=== PATIENT | female | born 1970 | race Caucasian/White ===

== ENCOUNTER 2017-08-03 08:04 | Inpatient (IN) ==
--- NOTE | 2017-08-03 08:30 | ED.PDOC ---
General ED Provider: Dr. MARTHA KIRKLAND Chief Complaint: Nausea/Vomiting Stated Complaint: abdominal pain Time Seen by Physician: 08:27 Mode of Arrival: Wheelchair Information Source: Patient Exam Limitations: No limitations Primary Care Provider: ODIN MOTTA Nursing and Triage Documentation Reviewed and Agree: Yes Reviewed sepsis parameters & appropriate labs ordered?: Yes System Inflammatory Response Syndrome: Not Applicable Sepsis Protocol: For patient's 13 years and over: Temp is 96.8 and below OR 101 and greater Pulse >90 BPM Resp >20/minute Acutely Altered Mental Status Are patient's symptoms suggestive of a new infection, such as: -Pneumonia -Skin, Soft Tissue -Endocarditis -UTI -Bone, Joint Infection -Implantable Device -Acute Abdominal Infection -Wound Infection -Meningitis -Blood Stream Catheter Infection -Unknown System Inflammatory Response Syndrome: Not Applicable GI Complaint Exam - Abdominal Pain Complaint/Exam Onset: Sudden Duration: 3 day ago Symptoms Are: Still present Timing: Intermittent Initial Severity: Moderate Current Severity: Moderate Location of Pain: Diffuse Radiates To: Reports: Back (right flank). Denies: Chest Character: Reports: Cramping Aggravating: Reports: Position Alleviating: Reports: Rest Associated Signs and Symptoms: Reports: Cough, Back pain, Nausea, Vomiting (5), Sore throat AAA Risk Factors: Reports: None Cardiac Risk Factors: Reports: None Ectopic Risk Factors: Reports: None Ovarian Torsion Risk Factors: Reports: None Surgical Obstruction Risk Factors: Reports: None Related Surgical History: Reports: None Patient Rh Status: Unknown Abdominal Findings: Present: None Differential Diagnoses: Appendicitis, Bowel Obstruction, Constipation, Gastroenteritis Quality Indicators for AMI: EKG in 10min. Quality Indicators for Cardiac Chest Pain: EKG in 10min. Quality Indicator For Non-Traumatic Chest Pain/Syncope: EKG Performed Review of Systems - Review Of Systems Constitutional: Reports: Chills, Malaise, Weakness, Loss of appetite Eyes: Reports: No symptoms Ears, Nose, Mouth, Throat: Reports: No symptoms Respiratory: Reports: No symptoms Cardiac: Reports: No symptoms GI: Reports: Abdominal pain, Nausea, Vomiting : Reports: No symptoms Musculoskeletal: Reports: No symptoms Skin: Reports: No symptoms Neurological: Reports: No symptoms Endocrine: Reports: No symptoms Hematologic/Lymphatic: Reports: No symptoms All Other Systems: Reviewed and Negative Past Medical History - Past Medical History Previously Healthy: Yes Endocrine: Reports: None Cardiovascular: Reports: None Respiratory: Reports: None Hematological: Reports: None Gastrointestinal: Reports: None Genitourinary: Reports: None Neuro/Psych: Reports: Anxiety Musculoskeletal: Reports: None Cancer: Reports: None Last Menstrual Period: 13 years - Surgical History General Surgical History: Reports: None - Family History Family History: Reports: None - Social History Smoking Status: Current every day smoker, Heavy tobacco smoker Hx Substance Use: No Alcohol Screening: Occasionally Physical Exam - Physical Exam Appearance: Ill-appearing Ill-appearing: Mild Pain Distress: Mild Eyes: ERNIE, EOMI, Conjunctiva clear ENT: Ears normal, Nose normal, Oropharynx normal Respiratory: Airway patent, Breath sounds clear, Breath sounds equal, Respirations nonlabored Cardiovascular: RRR, Pulses normal, No rub, No murmur GI/: No masses, Bowel sounds normal, Tender (diffusely) Musculoskeletal: Normal strength, ROM intact, No edema, No calf tenderness Skin: Warm, Dry, Normal color Neurological: Sensation intact, Motor intact, Reflexes intact, Cranial nerves intact, Alert, Oriented Psychiatric: Affect appropriate, Mood appropriate Physician Notification - Case Discussed Physician Notified: pmd Time of Notification: 09:58 Admit To: Inpatient Critical Care Note - Critical Care Note Total Time (mins): 0 Course - Course Hematology/Chemistry: 08/03/17 08:40 08/03/17 08:40 Orders, Labs, Meds: Lab Review 08/03/17 08/03/17 08/03/17 08:40 08:40 08:40 WBC 9.76 RBC 4.32 Hgb 13.3 Hct 38.7 MCV 89.6 MCH 30.8 MCHC 34.4 RDW Coeff of Fritz 13.4 Plt Count 280 Immature Gran % (Auto) 0.3 Neut % (Auto) 78.9 Lymph % (Auto) 16.8 [place] % (Auto) 3.5 Eos % (Auto) 0.3 Baso % (Auto) 0.2 Immature Gran # (Auto) 0.0 Neut # (Auto) 7.7 H Lymph # (Auto) 1.6 [place] # (Auto) 0.3 L Eos # (Auto) 0.0 Baso # (Auto) 0.0 Sodium 138 Potassium 3.8 Chloride 104 Carbon Dioxide 26 Anion Gap 11.8 BUN 17 Creatinine 0.66 Estimated GFR (MDRD) 96.00 BUN/Creatinine Ratio 25.75 Glucose 128 H Calcium 9.2 Total Bilirubin 0.4 AST 17 ALT 21 Alkaline Phosphatase 80 Total Creatine Kinase 41 Troponin I < 0.0100 Total Protein 6.8 Albumin 3.5 Globulin 3.3 Albumin/Globulin Ratio 1.06 Amylase 84 Lipase 28 Serum , Qual Negative Orders Category Date Time Status EKG-(ED ONLY) Stat CARDIO 08/03/17 08:25 Completed AMYLASE Stat LAB 08/03/17 08:40 Completed CBC W/ AUTO DIFF Stat LAB 08/03/17 08:40 Completed COMPREHENSIVE METABOLIC PANEL Stat LAB 08/03/17 08:40 Completed CREATINE KINASE Stat LAB 08/03/17 08:40 Completed FLU A/B MOLECULAR Stat LAB 08/03/17 09:25 Received LIPASE Stat LAB 08/03/17 08:40 Completed MOLECULAR GROUP A STREP Stat LAB 08/03/17 09:25 Received SERUM Stat LAB 08/03/17 08:40 Completed TROPONIN I Stat LAB 08/03/17 08:40 Completed URINALYSIS C & S IF INDICATED Stat LAB 08/03/17 08:25 Uncollected Alprazolam [Xanax] MEDS 08/03/17 15:00 Ordered 0.25 mg PO TID Morphine Sulfate [Morphine 4 mg/ml Syringe] MEDS 08/03/17 08:34 Discontinued 4 mg IM ONCE STA Ondansetron HCl/Pf [Zofran 4 mg/2 ml] MEDS 08/03/17 08:32 Discontinued 4 mg IM ONCE STA Ondansetron HCl/Pf [Zofran 4 mg/2 ml] MEDS 08/03/17 09:56 Ordered 4 mg IVP Q6H PRN SODIUM CHLORIDE 0.9% @ 125 MLS/HR(1,000ml) MEDS 08/03/17 09:57 Ordered Sodium Chloride 0.9% [Sodium Chloride] 1,000 ml IV 125 mls/hr CT ABDOMEN/PELVIS WO CONTRAST Stat RADS 08/03/17 08:[address] CHEST W/O CONTRAST Stat RADS 08/03/17 08:26 Completed Medications Generic Name Dose Route Start Last Admin Trade Name Freq PRN Reason Stop Dose Admin Alprazolam 0.25 mg 08/03/17 15:00 Xanax PO TID TERA Sodium Chloride 1,000 mls @ 125 mls/hr 08/03/17 09:57 Sodium Chloride IV 08/03/17 17:56 .Q8H STA Ondansetron HCl 4 mg 08/03/17 09:56 Zofran 4 Mg/2 Ml IVP Q6H PRN Nausea / Vomiting Discontinued Medications Generic Name Dose Route Start Last Admin Trade Name Oluq PRN Reason Stop Dose Admin Morphine Sulfate 4 mg 08/03/17 08:34 08/03/17 08:57 Morphine 4 Mg/Ml Syringe IM 08/03/17 08:35 4 mg ONCE STA Administration Ondansetron HCl 4 mg 08/03/17 08:32 08/03/17 08:56 Zofran 4 Mg/2 Ml IM 08/03/17 08:33 4 mg ONCE STA Administration Vital Signs: Temp Pulse Resp BP Pulse Ox 08/03/17 08:05 99.5 F 76 20 130/66 100 Departure - Departure Time of Disposition: 09:58 Disposition: ADMITTED INPATIENT Discharge Problem: Nausea, Vomiting, Abdominal pain Instructions: Abdominal Pain (ED) Condition: Good Pt referred to PMD for follow-up: Yes IPMP verified?: No Additional Instructions: Please call your Family Physician as soon as possible to schedule a follow-up appointment. Allergies/Adverse Reactions: Allergies No Known Allergies Allergy (Unverified 08/03/17 08:13) Home Medications: Ambulatory Orders Alprazolam [Xanax] 0.25 mg PO TID 08/03/17 Fluoxetine HCl [Prozac] 20 mg PO DAILY 08/03/17 Disposition Discussed With: Patient
[2017-08-03] MEDS ORDERED: ZOFRAN 4 MG/2 ML IM STA (08:32)
[2017-08-03] MEDS ORDERED: MORPHINE 2 MG/ML SYRINGE IM STA (08:33)
[2017-08-03] MEDS ORDERED: MORPHINE 4 MG/ML SYRINGE IM STA (08:34)
--- NOTE | 2017-08-03 09:35 | CT ---
EXAM: Noncontrast CT of the chest HISTORY: Cough COMPARISON: 07/25/2014 chest x-ray TECHNIQUE: Noncontrast CT of the chest FINDINGS: There are mild emphysematous changes. There is minimal biapical scarring. No suspicious pulmonary nod ules are identified. There is minimal lingular atelectasis. No consolidation, pleural effusion or pne umothorax is seen. Heart size is normal. Atherosclerotic calcifications are seen including coronary arteries. No medias tinal lymphadenopathy is seen. Evaluation of the johan is suboptimal without IV contrast. There are minimal degenerative changes of the thoracic spine. IMPRESSION: No acute cardiopulmonary findings. Mild emphysematous changes. Atherosclerosis.
--- NOTE | 2017-08-03 09:43 | CT ---
EXAM: Noncontrast CT of the abdomen and pelvis HISTORY: Pain COMPARISON: None available. TECHNIQUE: CT of the abdomen and pelvis FINDINGS: Noncontrast technique and a paucity of intra-abdominal fat limits evaluation. The unenhanced liver, gallbladder, spleen, left adrenal, kidneys and pancreas appear within normal limits. There is a righ t adrenal nodule measuring 1.9 cm and -3 HU. No renal calculi are identified. The distal ureters are obscured. No hydronephrosis is seen. The stomach is underdistended. A few scattered fluid filled loops of small bowel are seen without ab normal dilation. The sigmoid colon is redundant. There is mild colonic stool. The appendix is not abn ormally enlarged. There is calcified atherosclerotic plaque of the aorta and some of its branches. No free air or free fluid is seen. IMPRESSION: Some fluid filled loops of small bowel. This can be seen with enteritis. 1.9 cm right adrenal probable benign adenoma. No renal calculi or hydronephrosis. Atherosclerosis. Noncontrast exam.
[2017-08-03] MEDS ORDERED: ZOFRAN 4 MG/2 ML IVP PRN (09:56)
[2017-08-03] MEDS ORDERED: SODIUM CHLORIDE 1,000 ML IV STA (09:57)
[2017-08-03] MEDS ORDERED: PROZAC PO SCH (14:00)
[2017-08-03 14:19] VITALS: BMI 18.7
[2017-08-03] MEDS: XANAX PO SCH ×2 (15:29→20:27)
[2017-08-03] MEDS ORDERED: SOMA PO SCH (21:00)
[2017-08-04] MEDS ORDERED: PROZAC PO SCH (09:00)
[2017-08-04] MEDS ORDERED: PROTONIX PO STA (09:23)
[2017-08-04] MEDS: XANAX PO SCH ×2 (09:39→15:00)
--- NOTE | 2017-08-04 10:47 | PCM.PROG ---
Attending Provider: ATTENDING PROVIDER: Dr. ODIN MOTTA This patient is seen with Leticia Sousa, Nurse Practitioner. DATE OF SERVICE: 08/04/17 SUBJECTIVE: This 46 year old WHITE/ F was hospitalized 08/03/17. The patient is resting comfortably in bed, alert. No nausea, no diarrhea. REVIEW OF SYSTEMS: CONSTITUTIONAL: Fatigue and weakness. No night sweats. No malaise, lethargy. No fever or chills. HEENT: Eyes: No visual changes. No eye pain. No eye discharge. ENT: No runny nose. No epistaxis. No sinus pain. No odynophagia. No congestion. RESPIRATORY: No cough, no congestion. No hemoptysis. No shortness of breath. CARDIOVASCULAR: No angina symptoms. No CHF symptoms. No atypical chest pain for CAD. No palpitations. No orthopnea.. GASTROINTESTINAL: No abdominal pain. No nausea or vomiting. No diarrhea or constipation. No hematemesis. No hematochezia. GENITOURINARY: No urgency. No frequency. No dysuria. No hematuria. No obstructive symptoms. No discharge. No pain. No significant abnormal bleeding. MUSCULOSKELETAL: No musculoskeletal pain; no joint swelling. NEUROLOGICAL: Awake, alert, oriented to time, place and person. No headache. No neck pain. No syncope. No seizures. No dizziness. PSYCHIATRIC: Not anxious. No depression. No suicidal thoughts. No homicidal thoughts. SKIN: No rash. No lesions. No wounds. ENDOCRINE: No unexplained weight loss. No weight gain. HEMATOLOGIC/LYMPHATIC: No anemia. No purpura. No petechiae. No prolonged or excessive bleeding. No palpable lymph nodes. PHYSICAL EXAMINATION: GENERAL: The patient is awake, alert and oriented, lying in bed in no distress. VITAL SIGNS: Temperature 97.0 F, Pulse 57, Respiratory Rate 20, BP 120/76, Pulse Ox 97% HEENT: Head normocephalic, atraumatic. Eyes: Extraocular muscles are intact. Pupils are equal, round and reactive to light and accommodation. Ears: No lesions. Nose appeared normal. Throat: No exudate or erythema. NECK: Supple. No JVD, no carotid bruit. No lymphadenopathy or thyromegaly. LUNGS: Diminished breath sounds. Clear to auscultation. Percussion note normal. Chest symmetrical. HEART: S1, S2, no S3. No murmurs. No cyanosis or clubbing. No ascites. Pulses: Dorsalis pedis and posterior tibial pulses +1 to +2 both sides. ABDOMEN: Soft. Non-tender. Bowel sounds active. No CVA tenderness. No mass felt. EXTREMITIES: No edema. Full range of motion of all extremities, equal. NEUROLOGIC: No focal deficit. Cranial nerves II through XII are grossly intact. No headache, no double vision or headache. SKIN: Not dry. Intact. Turgor-normal. LYMPHATIC: No palpable lymph nodes/no lymphedema. MUSCULOSKELETAL: Normal joints with no swelling. Muscle tone is normal. LAB REVIEW: 08/04/17 04:30 08/04/17 04:30 08/04/17 04:30: Sodium 139, Potassium 3.6, Chloride 107, Carbon Dioxide 26, Anion Gap 9.6, BUN 11, Creatinine 0.66, Estimated GFR (MDRD) 96.00, BUN/ Creatinine Ratio 16.66, Glucose 91, Calcium 8.8, Total Bilirubin 0.4, AST 18, ALT 20, Alkaline Phosphatase 74, Total Protein 6.0 L, Albumin 3.2 L, Globulin 2.8, Albumin/Globulin Ratio 1.14 08/04/17 04:30: WBC 6.62, RBC 4.07 L, Hgb 12.5, Hct 37.3, MCV 91.6, MCH 30.7, MCHC 33.5, RDW Coeff of Fritz 13.7, Plt Count 233, Immature Gran % (Auto) 0.6, Neut % (Auto) 37.3, Lymph % (Auto) 52.4 H, [place] % (Auto) 6.2, Eos % (Auto) 3.2, Baso % (Auto) 0.3, Immature Gran # (Auto) 0.0, Neut # (Auto) 2.5, Lymph # (Auto ) 3.5 H, [place] # (Auto) 0.4, Eos # (Auto) 0.2, Baso # (Auto) 0.0 08/03/17 12:00: Urine Color Yellow, Urine Clarity Cloudy, Urine pH 8.5, Ur Specific [place] 1.015, Urine Protein Negative, Urine Glucose (UA) Negative, Urine Ketones Negative, Urine Blood Negative, Urine Nitrite Negative, Urine Bilirubin Negative, Urine Urobilinogen 0.2, Ur Leukocyte Esterase Negative, Urine Microscopic RBC 0-2, Urine Microscopic WBC 0-2, Ur Squamous Epith Cells 0- 2, Amorphous Sediment 3+ ASSESSMENT: 1. ACUTE GASTROENTERITIS 2. ABDOMINAL PAIN RESOLVED PLAN: 1. Protonix 40 mg daily 2. BRAT diet Plan and coordination of the patient's care discussed in the presence of Financial Reporting Analyst and nurse. CONDITION: Stable SCRIBED BY: OG SAUCEDO Immigration Judge scribed while in presence of service performed by Dr. Motta/Leticia Sousa APRN on 08/04/17 ([id number])
[2017-08-04 15:40] VITALS: BP 105/66; TEMP 99.1
[2017-08-05] MEDS ORDERED: PROTONIX PO SCH (06:30)
--- NOTE | 2017-08-05 08:08 | PN ---
DATE OF SERVICE: 08/04/17 SUBJECTIVE: The patient is up and about doing well. She went out to smoke. No nausea and no vomiting. Her appetite is improving. The patient doesn't have insurance and she wants to go home. PHYSICAL EXAMINATION: HEENT: Head normocephalic, atraumatic. Eyes: Extraocular muscles are intact. Pupils are equal, round and reactive to light and accommodation. Ears: No lesions. Nose appeared normal. Throat: No exudate or erythema. NECK: Supple. No JVD, no carotid bruit. No lymphadenopathy or thyromegaly. LUNGS: Clear to auscultation. Percussion note normal. Chest symmetrical. HEART: S1, S2, no S3. No murmurs. No cyanosis or clubbing. No ascites. Pulses: Dorsalis pedis and posterior tibial pulses +1 to +2 both sides. ABDOMEN: Soft. Nontender. Bowel sounds active. No CVA tenderness. No mass felt. EXTREMITIES: No edema. Full range of motion of all extremities, equal. NEUROLOGIC: No focal deficit. Cranial nerves II through XII are grossly intact. No headache, no double vision or headache. SKIN: Not dry. Intact. Turgor - normal. LYMPHATIC: No palpable lymph nodes/no lymphedema. MUSCULOSKELETAL: Normal joints with no swelling. Muscle tone is normal. The patient was seen and examined with the Nurse Practitioner. PLAN: 1. The patient will be discharged home on Zofran 2. If she starts again throwing up to come back to the hospital 3. Counseling for smoking done. TIME SPENT: More than 30 minutes. Plan and coordination of the patient's care discussed in the presence of nurse. BRENDA
--- NOTE | 2017-08-05 13:13 | PN ---
DATE OF SERVICE: 08/03/17 ADMITTING NOTE SUBJECTIVE: 46 year old white female came to the emergency room with nausea and vomiting. The patient also had some mild abdominal cramps. The duration of symptoms with nausea and vomiting nearly 5 days. According to the patient it started on Friday and started having vomiting ever since then she has vomited at least 5 -10 times a day, Not able to eat practically much and keep it down. There is no diarrhea. Sepsis protocol in hospital and the emergency room that was checked was negative. REVIEW OF SYSTEMS: CONSTITUTIONAL: No night sweats. Fatigue and weakness. No fever or chills. HEENT: Eyes: No visual changes. No eye pain. No eye discharge. ENT: No runny nose. No epistaxis. No sinus pain. No sore throat. No odynophagia. No congestion. RESPIRATORY: No cough, no congestion. No hemoptysis. No shortness of breath. CARDIOVASCULAR: No angina symptoms. No CHF symptoms. No atypical chest pain for CAD. No palpitations. No orthopnea. GASTROINTESTINAL: Mild abdominal cramps. Nausea and vomiting. No diarrhea or constipation. No hematemesis. No hematochezia. GENITOURINARY: No urgency. No frequency. No dysuria. No hematuria. No obstructive symptoms. No discharge. No pain. No significant abnormal bleeding. MUSCULOSKELETAL: No musculoskeletal pain; no joint swelling. NEUROLOGICAL: No headache. No neck pain. No syncope. No seizures. No dizziness. PSYCHIATRIC: Not anxious. No depression. No suicidal thoughts. No homicidal thoughts. SKIN: No rash. No lesions. No wounds. ENDOCRINE: No unexplained weight loss. No weight gain. HEMATOLOGIC/LYMPHATIC: No anemia. No purpura. No petechiae. No prolonged or excessive bleeding. No palpable lymph nodes. MEDICATIONS: Soma one at night Xanax 0.25mg three times a day Prozac 20mg PO daily MEDICAL/SURGICAL HISTORY: History of anxiety disorder The patient is underweight PERSONAL/FAMILY/SOCIAL HISTORY: The patient is smoker, and lives with the . No alcohol abuse. PHYSICAL EXAMINATION: GENERAL: The patient is oriented to time, place and person VITAL SIGNS: Temperature 99.5m, pulse 76, respiratory rate 20, blood pressure 130/66 and pulse ox 100%. HEENT: Head normocephalic, atraumatic. Eyes: Extraocular muscles are intact. Pupils are equal, round and reactive to light and accommodation. Ears: No lesions. Nose appeared normal. Throat: No exudate or erythema. NECK: Supple. No JVP, no carotid bruit. No lymphadenopathy or thyromegaly. LUNGS: Clear to auscultation. Percussion note normal. Chest symmetrical. HEART: S1, S2, no S3. No murmurs. No cyanosis or clubbing. No ascites. Pulses: Dorsalis pedis and posterior tibial pulses +1 to +2 both sides. ABDOMEN: Soft. Nontender. Bowel sounds active. No CVA tenderness. No mass felt. EXTREMITIES: No edema. Full range of motion of all extremities, equal. NEUROLOGIC: No focal deficit. Cranial nerves II through XII are grossly intact. No headache, no double vision or headache. SKIN: Dry. Intact. Turgor - normal. Mucosa Membrane dry. LYMPHATIC: No palpable lymph nodes/no lymphedema. MUSCULOSKELETAL: Normal joints with no swelling. Muscle tone is normal. LABS: Hgb 13, hct 38, WBC 9,000 normal differential, creatinine 0.6, BUN 17, potassium 3.6. Serum is negative. Troponin negative, lipase and amylase normal. CT scan of the abdomen shows acute enteritis. EKG sinus rhythm with no acute changes. ASSESSMENT: 1. Acute gastritis etiology likely viral 2. Anxiety disorder with depression, seems to be uncontrol PLAN: 1. Give IV fluids 2. IV Zofran 3. Routine Labs 4. Chest x-ray 5. CBC and CMP today 6. Diet as tolerated CONDITION: Stable. TIME SPENT: More than 30 minutes. Plan and coordination of the patient's care discussed in the presence of nurse. BRENDA
--- NOTE | 2017-08-08 08:14 | PN ---
08/03/17: Level 5 08/04/17: D as in discharge MTDD
--- NOTE | 2017-08-27 10:46 | SSS ---
DATE OF SERVICE: 08/04/17 (ADMITTED 08/03/17) REASON FOR ADMISSION: Gastroenteritis HISTORY OF PRESENT ILLNESS: This is a 46-year-old female seen in the ER by Dr. Mascorro. The patient is having nausea and vomiting numerous episodes times three days, unable to eat or take liquids. Complains of right flank pain. No dysuria. Given Morphine 4 mg IM times one and Zofran 4 mg IV times one. IV fluids for hydration. REVIEW OF SYSTEMS: CONSTITUTIONAL: No night sweats. No fatigue, malaise, lethargy. No fever or chills. HEENT: Eyes: No visual changes. No eye pain. No eye discharge. ENT: No runny nose. No epistaxis. No sinus pain. No sore throat. No odynophagia. No ear pain. No congestion. RESPIRATORY: No cough, no congestion. No hemoptysis. No shortness of breath. CARDIOVASCULAR: No angina symptoms. No CHF symptoms. No atypical chest pain for CAD. No palpitations. No orthopnea. GASTROINTESTINAL: No abdominal pain. No nausea or vomiting. No diarrhea or constipation. No hematemesis. No hematochezia. GENITOURINARY: No dysuria. No hematuria. No obstructive symptoms. No discharge. No pain. No significant abnormal bleeding. MUSCULOSKELETAL: No musculoskeletal pain. No joint swelling. NEUROLOGICAL: Awake, alert, oriented to time, place and person. No headache. No neck pain. No syncope. No seizures. No dizziness. PSYCHIATRIC: Not anxious. No depression. No suicidal thoughts. No homicidal thoughts. SKIN: No rash. No lesions. No wounds. ENDOCRINE: No unexplained weight loss. No weight gain. HEMATOLOGIC/LYMPHATIC: No anemia. No purpura. No petechiae. No prolonged or excessive bleeding. No palpable lymph nodes. PAST MEDICAL/SURGICAL HISTORY: OSTEOARTHRITIS, SPINAL DEPRESSION/ANXIETY PE TUBES CHILD PERSONAL/FAMILY HISTORY/SOCIAL HISTORY: , resides at home alone. Independent with ADLs. Family is supportive of needs when necessary. No DME. No home health or homemaking. Heavy smoker. ETOH socially. PHYSICAL EXAMINATION: GENERAL: The patient is a 46-year-old female. Height 5'1, weight 103 lbs. VITAL SIGNS: On admission, BP 130/66, heart rate 76, respiratory rate 20, temperature 99.5, sat on room air 100%. HEENT: Head normocephalic, atraumatic. Eyes: Extraocular muscles are intact. Pupils are equal, round and reactive to light and accommodation. Ears: No lesions. Nose appeared normal. Throat: No exudate or erythema. NECK: Supple. No JVD, no carotid bruit. No lymphadenopathy or thyromegaly. LUNGS: Decreased breath sounds. Clear to auscultation. Percussion note normal. Chest symmetrical. HEART: S1, S2, no S3. No murmurs. No cyanosis or clubbing. No ascites. Pulses: Dorsalis pedis and posterior tibial pulses +1 to +2 both sides. ABDOMEN: Soft. Nontender. Bowel sounds active. No CVA tenderness. No mass felt. EXTREMITIES: No edema. Full range of motion of all extremities, equal. NEUROLOGIC: No focal deficit. Cranial nerves II through XII are grossly intact. No headache, no double vision or headache. SKIN: Not dry. Intact. Turgor - normal. LYMPHATIC: No palpable lymph nodes/no lymphedema. MUSCULOSKELETAL: Normal joints with no swelling. Muscle tone is normal. Old/present records reviewed Office records reviewed. ALLERGIES: NKDA MEDICATIONS: Prozac 20 mg daily Xanax 0.25 mg t.i.d. Soma 350 mg @ h.s. LABS/EKG'S/X-RAY/ECHO/ABG: CT chest mild emphysema; no acute findings. CT abdomen and pelvis - some fluid filled loops of small bowel likely enteritis. 1.9 cm adrenal nodule probably benign adenoma. WBC 6.62, hemoglobin 12.5, glucose 233, hematocrit 37.3. Chemistry: Sodium 139 , chloride 107, BUN 11, GFR 96, glucose 91, K+ 3.6, c02 26, creatinine 0.66. Influenza A and B negative. UA 3+ amorphous. PROGRESS NOTES: See EMR. Case Discussed with Attending Physician: Case Discussed with Family: Yes DIAGNOSES: 1. DEHYDRATION 2. ACUTE GASTROENTERITIS/ENTERITIS 3. DEPRESSION 4. ANXIETY 5. COPD RECOMMENDATIONS/PLAN: 1. Discharge home today 2. Return to office 08/14/17 at 11 a.m. 3. Resume home medications 4. New prescription for Zofran 4 mg p.o. q.6 to 8 hours p.r.n 5. Diet - soft, advance as tolerated 6. Activity - Rest, increase as tolerated TIME SPENT: More than 70 minutes. MTDD
== END 2017-08-04 16:37 | disposition home or self-care (01) | DRG 392 ==
LOC: ED 08:04 → MEDSURG B 11:56
PROVIDERS: ADMIT Internal Medicine; ATTEND Internal Medicine
DX: K52.9 Noninfective gastroenteritis and colitis, unspecified (principal); Z68.1 Body mass index [BMI] 19.9 or less, adult; E86.0 Dehydration; F17.210 Nicotine dependence, cigarettes, uncomplicated; D35.00 Benign neoplasm of unspecified adrenal gland; J44.9 Chronic obstructive pulmonary disease, unspecified; F41.8 Other specified anxiety disorders; R63.6 Underweight
CPT/HCPCS: 36415; 80053; 81001; 82150; 82550; 83690; 84484; 84703; 85025; 87502; 87651; 93005; 93010; 96372; 99223; 99239; 99284

== ENCOUNTER 2017-08-14 13:10 | Outpatient (CLI) ==
--- NOTE | 2017-08-14 13:55 | CT ---
EXAM: CT of the head without contrast. HISTORY: Syncope and dizziness. COMPARISON: None. TECHNIQUE: Contiguous axial images at 5 mm intervals were obtained from the base of the skull to the vertex of the calvarium. No contrast was given. FINDINGS: The CSF containing spaces are normal in size and position. There are no extraaxial fluid collections. There is no evidence of an acute intracranial hemorrhage. There are no masses or mass effect. No areas of abnormal density are identified. Hawthorne-white differentiation is normal. The o sseous and extracranial soft tissues are normal. IMPRESSION: No acute intracranial abnormality.
--- NOTE | 2017-08-14 14:11 | US ---
Exam: Hawthorne-scale and color Doppler ultrasonographic evaluation of the carotid arteries. Comparison: None available. Reason for exam: Syncope, dizziness. FINDINGS: There is a moderate amount of atheromatous plaque seen in the proximal right internal dao tid artery The right ECA measures 0.8 meters per second The right CCA measures 1.0 / 0.4 meters per second. The right internal carotid artery peak systolic velocity measures 1.0 meters per second The right internal carotid artery/CCA PSV ratio measures 1.1 The right internal carotid artery end-diastolic velocity measures 0.3 meters per second. There is normal antegrade right vertebral artery flow. There is a small amount of atheromatous plaque seen in the left internal carotid artery The left ECA measures 0.9 meters per second The left CCA measures 0.9 / 0.4 meters per second. The left internal carotid artery peak systolic velocity measures 1.0 meters per second. The left internal carotid artery/CCA PSV ratio measures 1.2 The left internal carotid artery end-diastolic velocity measures 0.5 meters per second. There is normal left antegrade vertebral artery flow. Impression: No significant stenotic disease is seen by peak systolic velocity measurements in either the right or left internal carotid arteries.
== END 2017-08-14 13:11 | disposition home or self-care (01) ==
LOC: RAD 13:10
PROVIDERS: ATTEND Internal Medicine
DX: R55 Syncope and collapse (principal); R42 Dizziness and giddiness

== ENCOUNTER 2017-08-18 09:31 | Outpatient (CLI) | END 2017-08-18 09:32 | disposition home or self-care (01) | LOC: CAR 09:31 | PROVIDERS: ATTEND Internal Medicine | DX: R55 Syncope and collapse (principal) | CPT/HCPCS: 93227 ==